=== PATIENT | female | born 1940 | race Caucasian/White ===

== ENCOUNTER 2019-01-26 11:28 | Inpatient (IN) ==
[2019-01-26] MEDS ORDERED: NS 1,000 ML IV ONE (12:13)
[2019-01-26] MEDS ORDERED: ZOFRAN IV ONE (12:14)
--- NOTE | 2019-01-26 14:33 | Diag Imaging Result Doc PS360 ---
EXAM: FLAT/UPRIGHT ABD/1 VIEW CHEST INDICATION: NAUSEA/VOMITING TECHNIQUE: 3 views COMPARISON: Chest radiograph dated 12/17/2016 FINDINGS: There are nonspecific bowel gas and stool patterns. There is nonspecific mild patchy small bowel gas. There is only mild distention. There is nothing specific for obstruction. There is no evidence of large volume free abdominal gas. There is no evidence of organomegaly. There has been interval placement of a transvenous pacemaker in the expected position. The lungs are grossly clear. There is no discrete pleural fluid collection or pneumothorax. The cardiomediastinal silhouette and central vasculature are grossly unremarkable. IMPRESSION: Nonspecific abdomen. Electronically signed by Kendrick Brady 01/26/2019 2:31 PM
[2019-01-26 14:51] LABS: BASO# 0.05 X1000 (0.0-0.2); BASO% 0.5 % (0.0-0.8); EOS# 0.03 X1000 (0.0-0.7); EOS% 0.3 % (0.0-10.0); HEMATOCRIT 43.1 % (37.0-47.0); HEMOGLOBIN 13.6 g/dL (12.0-16.0); LYMPH# 1.22 X1000 (1.2-3.4); LYMPH% 11.6 % (20.5-51.1); MCH 28.3 PG (27-31); MCHC 31.6 g/dL (33-37); MCV 89.8 FL (81-99); MONO# 1.02 X1000 (0.11-0.59); MONO% 9.7 % (1.7-9.3); MPV 10.6 FL (7.4-10.4); NEUT# 8.21 X1000 (1.4-6.5); NEUT% 77.9 % (42.2-75.2); PLT 133 X1000 (130-400); RDW 13.6 % (11.5-14.5); WBC 10.53 X1000 (4.8-10.8)
[2019-01-26 15:20] LABS: ALB/GLOB RATIO 1.2; ALBUMIN 3.3 g/dL (3.5-5.0); POTASSIUM 4.1 mmol/L (3.5-5.1); TOTAL BILIRUBIN 0.43 mg/dL (0.20-1.00)
[2019-01-26] MEDS ORDERED: IMODIUM PO ONE (15:59)
--- NOTE | 2019-01-26 16:01 | PROVIDER DOCUMENTATION ---
This chart was entered by Latrice Cates Scribe, acting as scribe for Radha Payne MD. HPI-Abdominal Pain/GI Problem - General Chief Complaint: Diarrhea Stated Complaint: R paralysis, n/v/d Time Seen by Provider: 01/26/19 11:40 Source: patient, family () Allergies/Adverse Reactions: Patient Allergies Allergy/AdvReac Type Severity Reaction Status Date / Time latex Allergy Unknown Verified 01/26/19 12:05 Home Medications: Home Medication List Medication Instructions Recorded Confirmed Last Taken Type Atorvastatin Calcium [Lipitor] 20 mg PO QHS 04/28/13 04/28/13 04/27/13 18:00 History Duloxetine [Cymbalta] 60 mg PO DAILY 04/28/13 04/28/13 04/28/13 08:00 History Furosemide [Lasix] 20 mg PO DAILY 04/28/13 04/28/13 04/28/13 08:00 History Lisinopril [Zestril] 20 mg PO DAILY 04/28/13 04/28/13 04/28/13 08:00 History Metoprolol Succinate E.r. [Toprol 12.5 mg PO DAILY 04/28/13 04/28/13 04/27/13 18 :00 History Xl] Omeprazole [Prilosec] 20 mg PO DAILY 04/28/13 04/28/13 04/28/13 08:00 History - History of Present Illness-ABD Nature of Presenting Problems: 78 y/o female with history of stroke and pacemaker placement presents to the ED with complaint of diarrhea since yesterday with pain to perirectal and buttocks. states he gave Immodium suppository last night without relief. states they had the same dinner last night and he has no symptoms. No recent antibiotic treatment. Denies vomiting, fever, and abdominal pain. Onset/Duration: reports: last night Timing: reports: still present Activities at Onset: reports: light activity Modifying Factors: worse with: eating Associated Symptoms: denies: fever/chills, vomiting Review of Systems - Adult - REVIEW OF SYSTEMS - ADULT Constitutional: denies: chills, fever, night sweats Eyes: reports: no symptoms reported Ears, Nose, Mouth & Throat: reports: no symptoms reported Cardiovascular: reports: no symptoms reported Respiratory: reports: no symptoms reported Gastrointestinal: reports: diarrhea. denies: abdominal pain, nausea, vomiting Genitourinary: reports: no symptoms reported Musculoskeletal: reports: no symptoms reported Integumentary: reports: other (sore/raw anus and buttocks). denies: rash, skin thickening Neurological: reports: no symptoms reported Psychiatric: reports: no symptoms reported Endocrine: reports: no symptoms reported Hematologic/Lymphatic: reports: no symptoms reported Allergic/Immunologic: reports: no symptoms reported All Other Systems: Reviewed and Negative Past History - Adult - PAST MEDICAL HISTORY-ADULT Review of Records: reports: Old Records Reviewed, Nursing Assessment Review, Medications Reviewed, Social history reviewed & non-contributory. Major Childhood Illnesses: reports: denies history Cardiovascular: reports: denies history Respiratory: reports: denies history Gastrointestinal: reports: denies history Obstetrical/Gynecological: reports: denies history Genitourinary: reports: denies history Musculoskeletal: reports: denies history Neurological: reports: denies history Endocrine/Immune: reports: denies history Other Conditions: reports: denies history - IMMUNIZATION STATUS Childhood Immunizations: See Nurse Assessment Flu Vaccine: See Nurse Assessment - FAMILY HISTORY Family History: reviewed, not pertinent - SOCIAL HISTORY Smoking: other (former smoker) Living Situation: family Physical Exam-General - PHYSICAL EXAM-ADULT Initial Vital Signs Reviewed: Yes - CONSTITUTIONAL General Appearance: alert, no apparent distress - HEAD, EARS, NOSE, MOUTH & THROAT HENMT: normocephalic/atraumatic - RESPIRATORY Respiratory: lungs clear, normal breath sounds, wheezing. negative: rales, rhonchi - CARDIOVASCULAR Cardiovascular: regular rate, rhythm, no gallop - GASTROINTESTINAL (ABDOMEN) Abdominal Exam: soft, tenderness (diffuse), other (hyperactive bowel sounds). negative: distended, hernia, mass - SKIN Integumentary: warm/dry - NEUROLOGIC Neurologic: grossly normal Progress - PLAN OF CARE/RESULTS Progress/Plan/Lab Results: Vital Signs - 8 hr 01/26/19 12:05 Temperature 98.1 F Pulse Rate 61 Respiratory Rate 18 Blood Pressure 176/78 O2 Sat by Pulse Oximetry 97 01/26/19 13:32 Clostridium difficile Antigen (WILFREDO) - Final Stool Laboratory Results - last 24 hr 01/26/19 01/26/19 14:44 14:44 WBC 10.53 RBC 4.80 Hgb 13.6 Hct 43.1 MCV 89.8 MCH 28.3 MCHC 31.6 L RDW Std Deviation 13.6 Plt Count 133 MPV 10.6 H Immature Gran % (Auto) 0.0 Neut % (Auto) 77.9 H Lymph % (Auto) 11.6 L Corson % (Auto) 9.7 H Eos % (Auto) 0.3 Baso % (Auto) 0.5 Immature Gran # (Auto) 0.00 Neut # (Auto) 8.21 H Lymph # (Auto) 1.22 Corson # (Auto) 1.02 H Eos # (Auto) 0.03 Baso # (Auto) 0.05 Sodium 142 Potassium 4.1 Chloride 106 Carbon Dioxide 22 L Anion Gap 14 BUN 14 Creatinine 1.0 H Estimated GFR/1.73 m2 54 BUN/Creatinine Ratio 14 Glucose 80 Calculated Osmolality 283 Calcium 9.0 Total Bilirubin 0.43 AST 14 ALT 8 L Alkaline Phosphatase 100 Total Protein 6.0 L Albumin 3.3 L Globulin 2.7 Albumin/Globulin Ratio 1.2 Amylase 23 Lipase 18 Orders Category Date Time Status FLAT/UPRIGHT ABD/1 VIEW CHEST [RAD] Stat Exams 01/26/19 12:13 Completed AMYLASE [CHEM] Stat Lab 01/26/19 14:44 Completed C DIFF ANTIGEN [STOOL] Stat Lab 01/26/19 13:32 Completed CBC WITH ELECTRONIC DIFF [HEME] Stat Lab 01/26/19 14:44 Completed COMPREHENSIVE METABOLIC PANEL [CHEM] Stat Lab 01/26/19 14:44 Completed LIPASE [CHEM] Stat Lab 01/26/19 14:44 Completed 0.9% Sodium Chloride Inj [Ns] 1,000 ml Med 01/26/19 12:13 Discontinued IV 999 mls/hr Ondansetron [Zofran] Med 01/26/19 12:14 Discontinued 4 mg IV NOW ONE Result Diagrams: 01/26/19 14:44 01/26/19 14:44 - EKG 1 Time of EKG reading by physician:: 11:41 EKG Read and Signed by:: Radha Payne EKG Interpretation (*Must complete 3 of following elements*): Abnormal Rate: 64 Rhythm: AV dual-paced w/frequent ventricular paced complexes - XRAY 1 XRAY Study: Chest, Abdomen (EXAM: FLAT/UPRIGHT ABD/1 VIEW CHEST INDICATION: NAUSEA/VOMITING TECHNIQUE: 3 views COMPARISON: Chest radiograph dated 2016 FINDINGS: There are nonspecific bowel gas and stool patterns. There is nonspecific mild patchy small bowel gas. There is only mild distention. There is nothing specific for obstruction. There is no evidence of large volume free abdominal gas. There is no evidence of organomegaly. There has been interval placement of a transvenous pacemaker in the expected position. The lungs are grossly clear. There is no discrete pleural fluid collection or pneumothorax. The cardiomediastinal silhouette and central vasculature are grossly unremarkable. IMPRESSION: Nonspecific abdomen. Electronically signed by Kendrick Brady 01/26/2019 2:31 PM) Departure - Departure Date of Disposition Decision: 01/26/19 Time of Disposition Decision: 16:00 DIAGNOSIS: Diarrhea Qualifiers: Diarrhea type: unspecified type Qualified Code(s): R19.7 - Diarrhea, unspecified Disposition: ADMITTED INPATIENT 09 Certified Medical Emergency: Emergent Condition: Good Additional Freetext Instructions: ED Follow Up Instructions: You have been treated by a care provider in the Emergency Department. These instructions are being provided to you so you can have an understanding of how to care for yourself upon discharge. Upon discharge from the Emergency Department, you are responsible for making arrangements for follow-up care by a physician of your choice. Take all prescribed medications as directed. Return to the Emergency Department immediately for any new or worsening symptoms. You may call the Physician Referral phone number at [phone] to obtain a list of Physicians who are taking new patients. Referrals and Follow-Ups: Jessica Willard MD [Primary Care Provider] - - Critical Care Note This patient required my direct & personal management of CC.: No Attestation - Physician/ JOSELUIS Attestation Patient care was provided by Advanced Practice Provider:: No The physician spent face to face time with patient:: Yes Advanced Practice Provider documentation review:: Supervising physician onsite and consulted in the evaluation and care of this patient. The physician did have a face to face encounter with the patient. This chart was documented by the indicated scribe, (Latrice Catse Scribe) and accurately reflects the services I performed and decisions made by , Radha Payne MD, as attested by the provider's signature.
[2019-01-26] MEDS ORDERED: LOMOTIL PO ONE (16:34)
[2019-01-26] MEDS ORDERED: TYLENOL PO PRN (16:39)
[2019-01-26] MEDS ORDERED: ZOFRAN IV PRN (16:39)
[2019-01-26] MEDS ORDERED: LOMOTIL PO SCH ×2 (17:00)
[2019-01-26] MEDS ORDERED: APRESOLINE IV PRN (17:03)
[2019-01-26] MEDS: NS 1,000 ML IV SCH (17:14)
--- NOTE | 2019-01-26 18:02 | Diag Imaging Result Doc PS360 ---
EXAM: FOOT 2 VIEWS RIGHT INDICATION: right 3rd toe poss fx or dislocated TECHNIQUE: 2 views COMPARISON: None. FINDINGS: There is mild lateral subluxation/partial dislocation of the middle phalanx of the third toe with respect to the proximal phalanx. No other fracture or dislocation is appreciated. There are small calcaneal bone spurs. The surrounding soft tissues are essentially unremarkable by plain radiograph. IMPRESSION: Mild lateral subluxation/partial dislocation of the middle phalanx of the third toe. Electronically signed by Kendrick Brady 01/26/2019 5:59 PM
[2019-01-26] MEDS ORDERED: CALMOSEPTINE OINTMENT TOP PRN (18:07)
--- NOTE | 2019-01-26 18:16 | HISTORY AND PHYSICAL ---
PRIMARY CARE PROVIDER: Jessica Willard MD ELECTROMAGNET CRANE OPERATOR AND EP DOCTORS: Jose Mead MD and Dr. Estes NEUROLOGIST: Ramos Bowden MD OIL WELL DIRECTIONAL SURVEYOR: Dr. Benoit CHIEF COMPLAINT: Intractable diarrhea with nausea. HISTORY OF PRESENT ILLNESS: Ms. Ju Wing is a 78-year-old female with a medical history of ischemic stroke around 2 years ago that slightly effected her right side but mostly has caused aphasia or expressive aphasia. Also history of atrial fibrillation, depression now presents with complaints of severe diarrhea that started yesterday around 9 a.m. Food prior to the diarrhea was pizza that night before and yesterday morning she started having some nausea, ate some toast and drank some tea but apparently she had at least 9 incontinent stools that were brown liquid, no signs of bleeding, just with some nausea, no vomiting. The had given her a Phenergan suppository and a dose of Imodium with that begin around 5 p.m. yesterday. Around 3:00 this morning she attempted to go to the bathroom by herself and had an assisted fall with no injury. That is when she was brought to the emergency room as she just continued to keep having these diarrheal type stools. Denies any fevers or chills. There are no other complaints. Denies abdominal pain, but she does have a history of irritable bowel syndrome where she has bouts of diarrhea about once every two weeks with in between spells of constipation. Apparently she is having extremely large amounts of stools. Abdominal imaging does not show any signs of constipation. There are no signs of obstruction. We will go ahead and get her admitted, hydrate her and give her some medication to help slow down the bowel movements. On top of that she is very raw in the groin area. We will order something for that. He also showed me her right foot, third toe which appears to be fractured but we will take an image of it to make sure it is not dislocated. Will admit to the medical floor. PAST MEDICAL HISTORY: 1. CVA ischemic stroke in 2017 left her with expressive aphasia. 2. Atrial fibrillation history with a pacemaker. 3. Depression. 4. Chronic bilateral lower extremity swelling. She takes Lasix for this. 5. Hyperlipidemia. 6. In 2008, had a right lower extremity DVT. 7. CKD stage 3. PAST SURGICAL HISTORY: 1. Permanent pacemaker for atrial fibrillation/bradycardia. 2. Appendectomy. 3. Hysterectomy. 4. Multiple back injections in the past. 5. Right knee replaced. SOCIAL HISTORY: Quit smoking 45 years ago. No alcohol or illicit drugs. She gets around with a walker and she is beside her now of 45 years. FAMILY HISTORY: Mother; diabetes, stroke, heart attack. Father; really unknown but they think he may have had a myocardial infarction in his late forties. ALLERGIES: Tape adhesives and latex. HOME MEDICATIONS: 1. Eliquis 5 mg p.o. twice daily. 2. Colace 200 mg p.o. daily. 3. Flecainide acetate 100 mg p.o. twice daily. 4. Lasix 40 mg p.o. daily. 5. Cozaar 50 mg p.o. twice daily. 6. Bystolic 10 mg p.o. daily. 7. Protonix 40 mg p.o. daily. 8. MiraLAX 17 g, one half of the packet p.o. daily. 9. Potassium chloride extended release 20 mEq p.o. nightly. 10.Crestor 10 mg p.o. nightly. 11.Trintellix 20 mg p.o. daily. REVIEW OF SYSTEMS: Only complains of nausea. Does have tenderness in that right third toe and is complaining of the diarrhea. Otherwise, 14-point review of systems were completed and none were positive except those mentioned in the HPI. PHYSICAL EXAMINATION: VITAL SIGNS: Temperature 98.1, heart rate 63, respiratory rate 20, blood pressure 189/71, O2 saturation 98% on room air. GENERAL: Ms. Ju Wing is a 78-year-old female. She is in no acute distress. Nods appropriately to questions. She is aphasic but only expressive aphasia. HEENT: Atraumatic. Normocephalic. Pupils are equal and reactive. Extraocular movements are intact. Mucous membranes are dry. NECK: Trachea is midline. LUNGS: Clear to auscultation with bilateral breath sounds. No accessory muscle use or work with breathing noted. CARDIOVASCULAR: S1 and S2. Regular rate and rhythm. No rubs, gallops or murmurs. No lower extremity edema. +2 dorsalis pedis and radial pulses. Negative JVD or carotid bruits. ABDOMEN: Soft. Nontender. Nondistended. Positive bowel sounds x4. EXTREMITIES: Moves all extremities equally, a little bit of right foot drop noted but the microfilm mounter on the right hand was just as equal as the left hand and again with expressive aphasia. There were no signs of receptive aphasia. SKIN: Warm, dry and intact but pale. LABORATORY DATA: White blood cells 10,000, hemoglobin 13, hematocrit 43, platelet count 133. Sodium 142, potassium 4.1, BUN 14, creatinine 1.0, glucose 80, calcium 9.0, bilirubin 0.43, AST 14, ALT 8, albumin 3.3. Amylase 23, lipase 18. IMAGING: Abdominal x-ray nonspecific. ASSESSMENT AND PLAN: 1. Irritable bowel syndrome with significant diarrhea at this time. She does alternate in between diarrhea and constipation on a normal basis and normally has severe diarrhea once every 2 weeks. It is just that this time it is not subsiding. Will admit her for rehydration. Lomotil 3 times a day, to be held if there is constipation. It looks like she got a one-time dose of Imodium in the ER. She is also very raw and we will order some barrier cream. 2. Complaints of right foot third toe pain. Appears to be fractured. Will get an x-ray of that and make sure it is not dislocated. 3. History of atrial fibrillation on flecainide, Bystolic. Will continue those. Also on Eliquis and will continue that as well. 4. History of stroke that left her with expressive aphasia, mild right-sided affected. Continue with the Eliquis and statin. 5. Chronic kidney disease stage 3 per the but right now she is pretty stable. BUN 14, creatinine 1.0 with a GFR of 54. Will monitor. She is going to get some fluids for dehydration. 6. Deep vein thrombosis prophylaxis. She is on Eliquis so we will just continue with that. Dictated by AJAY Davey for Emiliano Haji MD cc: AJAY Davey MD
[2019-01-26] MEDS ORDERED: PRILOSEC PO SCH (21:00)
[2019-01-26] MEDS: TRINTELLIX PO SCH (21:07)
[2019-01-26] MEDS: TAMBOCOR PO SCH (21:07)
[2019-01-26] MEDS: CRESTOR PO SCH (21:07)
[2019-01-26] MEDS: ELIQUIS PO SCH (21:08)
[2019-01-26] MEDS: COZAAR PO SCH (21:08)
[2019-01-26] MEDS: KLOR-CON PO SCH (21:08)
[2019-01-26] MEDS: LOMOTIL PO SCH (21:14)
[2019-01-27 06:11] LABS: BASO# 0.03 X1000 (0.0-0.2); BASO% 0.4 % (0.0-0.8); EOS# 0.11 X1000 (0.0-0.7); EOS% 1.4 % (0.0-10.0); HEMATOCRIT 37.3 % (37.0-47.0); HEMOGLOBIN 11.7 g/dL (12.0-16.0); LYMPH# 1.72 X1000 (1.2-3.4); LYMPH% 21.9 % (20.5-51.1); MCH 27.8 PG (27-31); MCHC 31.4 g/dL (33-37); MCV 88.6 FL (81-99); MONO# 1.07 X1000 (0.11-0.59); MONO% 13.6 % (1.7-9.3); NEUT# 4.92 X1000 (1.4-6.5); NEUT% 62.7 % (42.2-75.2); PLT 132 X1000 (130-400); RBC 4.21 XMIL (4.2-5.4); RDW 13.3 % (11.5-14.5); WBC 7.85 X1000 (4.8-10.8)
[2019-01-27 06:15] LABS: INR 1.39; PROTIME 18.2 Seconds (11.0-16.0)
[2019-01-27 06:16] LABS: PTT 42.2 Seconds (22.3-41.8)
[2019-01-27] MEDS: NS 1,000 ML IV SCH ×2 (06:19→19:43)
[2019-01-27] MEDS: PROTONIX PO SCH (06:19)
[2019-01-27 06:48] LABS: ALB/GLOB RATIO 1.4; CALCIUM 8.3 mg/dL (8.8-10.2); CREATININE 1.1 mg/dL (0.5-0.9); MAGNESIUM 1.7 mg/dL (1.5-2.7); TOTAL BILIRUBIN 0.37 mg/dL (0.20-1.00); TOTAL PROTEIN 5.2 g/dL (6.3-8.3)
[2019-01-27 07:39] LABS: URINE SOURCE CATH
[2019-01-27 07:44] LABS: BILIRUBIN URINE NEGATIVE (NEGATIVE); BLOOD URINE NEGATIVE (NEGATIVE); COLOR YELLOW; GLUCOSE URINE NEGATIVE (NEGATIVE); KETONE URINE NEGATIVE (NEGATIVE); LEUKOCYTES URINE NEGATIVE (NEGATIVE); NITRITE URINE NEGATIVE (NEGATIVE); PROTEIN URINE NEGATIVE (NEGATIVE); SP GRAVITY URINE 1.014; TURBIDITY URINE CLEAR (CLEAR); UROBILINOGEN URINE NORMAL (NORMAL)
[2019-01-27 07:46] LABS: UR EPITHELIAL CELLS <10 /HPF (<10); URINE BACTERIA NEGATIVE /HPF; URINE RBC <10 /HPF (<10); URINE WBC <10 /HPF (<10)
--- NOTE | 2019-01-27 10:24 | EKG Report ---
Test Performed on : 01/26/2019 11:35:59 AM Test Reason : ED. NO EKG ORDER FOR MUSE Blood Pressure : / mmHG Vent. Rate : 064 BPM Atrial Rate : 064 BPM P-R Int : 000 ms QRS Dur : 210 ms QT Int : 534 ms P-R-T Axes : 000 -68 104 degrees QTc Int : 550 ms AV dual-paced rhythm with frequent ventricular-paced complexes Abnormal ECG When compared with ECG of 28-APR-2013 16:44, Electronic ventricular pacemaker has replaced Sinus rhythm. Unconfirmed Result
[2019-01-27] MEDS: COZAAR PO SCH ×2 (10:54→20:33)
[2019-01-27] MEDS: BYSTOLIC PO SCH (10:54)
[2019-01-27] MEDS: LOMOTIL PO SCH ×3 (10:54→23:39)
[2019-01-27] MEDS: ELIQUIS PO SCH ×2 (10:55→20:34)
[2019-01-27] MEDS: TAMBOCOR PO SCH ×2 (10:55→20:33)
--- NOTE | 2019-01-27 12:48 | PROGRESS NOTE ---
DATE: 01/27/2019 SUBJECTIVE: This morning Ms. Wing referred to be doing a lot better. According to her, her bowel movement is improving; however, later on this afternoon when I met with the , the seems to think that things are actually getting out of control and he will prefer if a GI specialist also sees her since Ms. Wing is noted to have a very bad case of IBS. OBJECTIVE: Vital signs: Blood pressure is 142/56, pulse is 61, respirations 20 , temperature 98.8 degrees. General: Ms. Lindsey is a 78-year-old female. She is in bed. She is not in any cardiopulmonary distress. Mucosa is pink and slightly dry. Anicteric and acyanotic. Neck: Supple. Chest: Clear to auscultation. No crepitations. No rhonchi. Cardiovascular: Regular rate and rhythm. There were no murmurs, no rubs, no gallops. GI: Abdomen soft , nontender. Bowel sounds present. There is no hepatosplenomegaly. RAMP SERVICE MAN: Patient is awake , alert, oriented. There was no focal neurological deficit; however, patient does have history of CVA with some right- side weakness, which it was not very apparent on physical exams to me. She is also said to have some episode of aphasia, but she was talking pretty clearly to me today. LABORATORY DATA: Hematology: WBC is 7.85, hemoglobin is 11.7, platelet count of 132,000. Chemistry: Also reviewed, unremarkable except for creatinine of 1.1. The patient does have a baseline of 1.2, so this seems to be her baseline. So far, Clostridium difficile has been negative. Stool WBC was negative. ASSESSMENT: 1. Near-syncope at home secondary to intravascular depletion, improved. 2. Intractable diarrhea, presumably from gastroenteritis. However, patient also has history of irritable bowel syndrome. Unsure if this is a flare-up. We will get Gastroenterology to evaluate the patient. The patient is currently on Lomotil. I have also added ondansetron and Welchol to control the bowel movement. 3. History of atrial fibrillation, currently rate controlled. 4. Previous history of cerebrovascular accident. The patient does not seem to have any neurological deficit at this point. 5. Chronic kidney disease stage IIIa. Stable. 6. Clinical volume depletion on presentation, improved clinically. 7. Perianal erythematous changes secondary to the excessive diarrhea. Wound Care has been consulted. cc: Emiliano Haji MD MTDD
--- NOTE | 2019-01-27 15:21 | GASTROENTEROLOGY CONSULTATION ---
DATE: 01/27/2019 REASON FOR CONSULT: Acute diarrhea. HISTORY OF PRESENT ILLNESS: Ms. Ju Wing is a 78-year-old woman with past medical history of ischemic stroke with right-sided weakness and expressive aphasia, atrial fibrillation, status post pacemaker, depression, chronic lower extremity swelling, hyperlipidemia, history of DVT, CKD stage 3, who presented yesterday with 2 days of profuse watery diarrhea. The patient was at her usual state of health 3 days ago when she had a bryant size pizza from [employer] in the evening. The next morning she developed copious watery bowel movements up to 10 times within the 24 hour period. She reports some nausea without vomiting. No hematochezia, melena. Difficult to discern whether she was having abdominal pain given her aphasia. The says that the patient had a presyncopal episode at home, prompting presentation to the ER. At baseline, the patient has a longstanding history of irritable bowel syndrome with alternating diarrhea and constipation for many, many years. The says that her present symptoms are significantly different from her baseline IBS and that she has never had anything like this before in the past. REVIEW OF SYSTEMS: The rest of review of systems is negative, although limited given unable to get a history from patient. PAST MEDICAL HISTORY: As per HPI. PAST SURGICAL HISTORY: Pacemaker for atrial fibrillation/bradycardia, appendectomy, hysterectomy, multiple back injections in the past, right knee replacement. SOCIAL HISTORY: Prior smoking. No alcohol or drug use. She walks with a walker at times. Lives with her . FAMILY HISTORY: Negative for any GI malignancies or inflammatory bowel disease. ALLERGIES: Tape, adhesives, and latex. HOME MEDICATIONS: Eliquis, Colace, flecainide, Lasix, Cozaar, Bystolic, Protonix, MiraLAX, potassium chloride, Crestor, Trintellix. PHYSICAL EXAMINATION: VITAL SIGNS: Temperature 98.8 degrees, heart rate 61, respiratory rate 20, blood pressure 142/56, O2 saturation 100% on room air, General: The patient is awake, alert, in no acute distress. HEENT: Sclerae anicteric. Moist mucous membranes. Neck: Supple. No JVD. No lymphadenopathy. Cardiac: Regular rate and rhythm. No murmurs, rubs, or gallops. Lungs: Clear to auscultation bilaterally. No wheezing or crackles. Abdomen: Soft, nontender, nondistended. Normoactive bowel sounds. No rebound or guarding. Extremities: 1+ bilateral pedal edema. Neurologic: The patient is aphasic, moving all her extremities. LABORATORY DATA: White count 7.85, hemoglobin 11.7 from 13.6 after fluid resuscitation, platelets of 132,000. INR of 1.39, sodium 141, potassium 4.0, chloride 109, bicarb 24, BUN 11, creatinine 1.1, albumin 3.0, total protein 5.2, total bilirubin 0.37, AST 13, ALT 7, lipase 18, TSH 1.83. UA is negative. IMAGING: KUB nonspecific abdomen STOOL STUDIES: Clostridium difficile antigen and toxin were negative. Fecal WBCs negative. Stool culture pending. DISCUSSION AND DECISION-MAKING: Ms. 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 Workup negative for Clostridium difficile and fecal leukocytes. Labs show normal white count and electrolytes. The etiology of her symptoms appears to be infectious in etiology, most likely gastroenteritis given the rapid onset and improvement vs pre-formed toxin. The says her symptoms have improved significantly since 2 days ago. She is currently on Lomotil 1 once 3 times a day, PPI, IV fluids. She denies any nausea at this time. We will go ahead and advance her diet as tolerated and watch her overnight to assess her response to oral intake. If she does well, I anticipate patient could be discharged from a GI perspective tomorrow and follow up in GI Clinic for further management of her underlying IBS. The patient has had a colonoscopy in the past and has no family history of inflammatory bowel disease, Crohn disease, or GI malignancies. For her atrial fibrillation, she can continue her Eliquis. For blood pressure, she is on her home medications. We will continue Protonix for GERD. Thank you for this consult. Please call us with any questions. We will follow with you. [facility]
[2019-01-27] MEDS: ZOFRAN PO SCH ×3 (16:22→23:39)
[2019-01-27] MEDS: TRINTELLIX PO SCH (16:26)
[2019-01-27] MEDS: WELCHOL PO SCH ×2 (16:26→20:33)
[2019-01-27] MEDS: CRESTOR PO SCH (20:33)
[2019-01-27] MEDS: KLOR-CON PO SCH (20:34)
[2019-01-28] MEDS: ZOFRAN PO SCH (06:09)
[2019-01-28] MEDS: PROTONIX PO SCH (06:09)
[2019-01-28] MEDS: NS 1,000 ML IV SCH (06:09)
[2019-01-28] MEDS: ELIQUIS PO SCH (07:58)
[2019-01-28] MEDS: COZAAR PO SCH (07:58)
[2019-01-28] MEDS: BYSTOLIC PO SCH (07:58)
[2019-01-28 07:59] VITALS: BP 143/50
[2019-01-28] MEDS: WELCHOL PO SCH (07:59)
[2019-01-28] MEDS: TAMBOCOR PO SCH (07:59)
--- NOTE | 2019-01-28 15:17 | PROVIDER PROGRESS NOTE ---
Progress Note - - 01/28/2019 SUBJECTIVE: No acute overnight events. No N/V/F. Tolerating diet. BMs x2 yesterday OBJECTIVE: Last Vital Signs Temp 98.3 F 01/28/19 07:58 Pulse 60 01/28/19 07:58 Resp 14 01/28/19 07:58 BP 143/50 01/28/19 07:58 Pulse Ox 99 01/28/19 07:58 Height 5 ft 8 in Weight 190 lb 5 oz GEN: awake, alert, NAD HEENT: anicteric NECK: supple, no jvd PULM: CTAB CV: RRR, no murmurs abd: soft NT/ND, NABS EXT: no cee NEURO: aphasic, moving all extremities LABS: None A/P: Ms. 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 Workup negative for Clostridium difficile, negative for fecal leukocytes. Labs show normal white count and electrolytes. The etiology of her symptoms appears to be infectious in etiology, most likely gastroenteritis. Patient is being discharged today. Continue imodium as needed. Recommend outpatient follow-up for treatment of underlying IBS. #Viral gastroenteritis: improving with supportive care; imodium as needed for diarrhea #Afib: rate controlled #IBS: recommend outpatient follow-up
--- NOTE | 2019-01-28 19:02 | DISCHARGE SUMMARY ---
ADMISSION DATE: 01/26/2019 DISCHARGE DATE: 01/28/2019 DISPOSITION: Home with home health. FOLLOWUP: 1. Dr. Willard. 2. Dr. Tadeo. CONSULTATIONS DURING THIS ADMISSION: GI was consulted. Patient was seen by Dr. Tadeo. INVESTIGATIVE PROCEDURES DONE DURING THIS ADMISSION: None. IMAGING STUDIES OF SIGNIFICANCE: A KUB was done which showed nonspecific abdomen. X-ray of the right foot showed a mild lateral subluxation, partial dislocation of the mid phalanx of the 3rd toe. ADMISSION DIAGNOSES: 1. Intractable bowel with significant diarrhea. 2. Complaints of right foot pain. 3. History of atrial fibrillation. 4. History of stroke with expressive aphasia. 5. Chronic kidney disease stage 3. DIAGNOSES AT THE TIME OF DISCHARGE: 1. Near-syncope episode at home, secondary to intravascular depletion, improved. 2. Intractable diarrhea, presumably gastroenteritis. 3. History of irritable bowel syndrome. 4. Atrial fibrillation, currently rate controlled. 5. Previous history of cerebrovascular accident with expressive aphasia. 6. Chronic kidney disease stage 3A. 7. Clinical volume depletion, improved. 8. Perianal erythematous changes, secondary to excessive diarrhea, improved. DISCHARGE MEDICATIONS: 1. Trintellix 20 mg daily. 2. Colace 200 mg daily. 3. Cozaar 50 mg b.i.d. 4. Bystolic 10 mg daily. 5. Pantoprazole 40 mg daily. 6. MiraLAX. 7. Apixaban 5 mg b.i.d. 8. Flecainide 100 mg b.i.d. 9. Crestor 10 mg at bedtime. 10. Vitamin D. PRESENTING COMPLAINT: Intractable diarrhea with nausea. HISTORY OF PRESENTING COMPLAINT: Ms. Wing is a 78-year-old female with a history of irritable bowel syndrome, previous CVA with expressive aphasia, and some right-sided weakness. Came to the emergency department after she had eaten some pizza a couple hours prior of arrival. Since then, she has been having multiple episodes of diarrhea associated with nauseation. At one point at home, she felt like she was going to black out. The brought her to the emergency department where she was evaluated and was found to be profoundly dehydrated, so she was admitted for further medical care. HOSPITAL COURSE: Ms. Wing was admitted to the medical floor under telemonitoring. She was adequately hydrated and when she felt slightly better, she was started on oral diet. GI was also consulted because of concerns from the that the diarrhea could be because of IBS flare. The patient was seen by Dr. Tadeo. Initial impression was that this was gastroenteritis just as we thought, and that he recommended the patient to follow up with him on outpatient basis for management of the IBS. This morning, Ms. Wing reports to feel a lot better, has not had any more bowel movement. She has been able to be up with physical therapy. was at the bedside. He was extremely grateful for the improvement that the has gone through. Ms. Wing is therefore in stable condition for discharge. Her current vitals: Blood pressure is 143/50, pulse is 60, respirations are 16, temperature is 98.3 degrees. Patient was saturating 99% on room air. Physical exam is unchanged. TIME SPENT FOR DISCHARGE: 36 minutes. cc: MD Jessica Leon MD Dr. Kelso
== END 2019-01-28 12:57 | disposition home or self-care (01) | DRG 641 ==
LOC: SUPCPDRO → ED 11:28 → 4N 17:18
PROVIDERS: ATTEND Internal Medicine
CPT/HCPCS: 73620; 74022; 80053; 81001; 82150; 83690; 83735; 84443; 85025; 85610; 85730; 87045; 87046; 87205; 87324; 87449; 89055; 93005; 96361; 96374; 97162; 97530; 99285; A9270; J2405; J7030